=== PATIENT | male | born 1990 | race Caucasian/White ===

== ENCOUNTER 2022-11-22 09:53 | Outpatient (CLI) | payer BC | END 2022-11-22 09:54 | disposition home or self-care (01) | LOC: CSHWCC 09:53 | PROVIDERS: ATTEND Nurse Practitioner Family | DX: T22.211D Burn of second degree of right forearm, subsequent encounter (principal); T23.261D Burn of second degree of back of right hand, subsequent encounter | CPT/HCPCS: 99204; G0463 ==

== ENCOUNTER 2022-11-27 10:03 | Outpatient (CLI) | payer BC | END 2022-11-27 10:04 | disposition home or self-care (01) | LOC: CSHWCC 10:03 | PROVIDERS: ATTEND Nurse Practitioner Family | DX: T22.211D Burn of second degree of right forearm, subsequent encounter (principal); T23.261D Burn of second degree of back of right hand, subsequent encounter | CPT/HCPCS: 16020 ==